=== PATIENT | male | born 1975 | race Two or more races ===

== ENCOUNTER 2019-04-07 00:27 | Emergency (ER) | payer MEDICAID, OTHER ==
[~2019-04-07] VITALS: Ht 172.7 cm; Wt 83.9 kg
[2019-04-07 00:47] VITALS: BP 131/88
[2019-04-07] MEDS ORDERED: ACETAMINOPHEN 500 MG TAB PO ONE (02:30)
== END 2019-04-07 03:00 | disposition home or self-care (01) ==
LOC: ER 00:33
DX: S00.03XA Contusion of scalp, initial encounter (principal); W01.0XXA Fall on same level from slipping, tripping and stumbling without subsequent striking against object, initial encounter; Y93.89 Activity, other specified; Y99.8 Other external cause status; Y92.89 Other specified places as the place of occurrence of the external cause
CPT/HCPCS: 70450; 72125